=== PATIENT | female | born 1965 | race African-American/Black ===

== ENCOUNTER 2016-11-19 06:47 | Day surgery (SDC) | payer BC ==
--- NOTE | ~2016-11-19 | EGD ---
EGD REPORT [facility] [address] [place] [address] NAME: ALLIE TO : 65 STATUS : REG [facility]#: [id number] AGE: 51 ADM/REG DATE : 11/19/16 MR#: [id number] REPORT SERV DATE: 11/19/16 DICTATED BY: EDIE MERCADO DATE: 11/19/16 REPORT STATUS : Draft TRANSCRIBED BY: [facility] DATE: 11/19/16 Endoscopy Center Patient Name: Allie To Date of : 1965 Attending MD: EDIE MERCADO MD Procedure Date No Time: 11/19/2016 Procedure: Colonoscopy Indications: Colon cancer screening in patient at increased risk: Family history of colon polyps mother/sister; last exam 2011. Patient Profile: Informed consent was obtained from the patient by me prior to the procedure. Risks, benefits, and alternatives were discussed including the risk of bleeding, perforation, infection, reaction to medicine, missed lesion, and cardiopulmonary complications. Referring MD: IVANIA OSEI Medicines: Monitored Anesthesia Care Complications: No immediate complications. Procedure: Pre-Anesthesia Assessment: - ASA Grade Assessment: II - A patient with mild systemic disease. After I obtained informed consent, the scope was passed under direct vision. Throughout the procedure, the patient's blood pressure, pulse, and oxygen saturations were monitored continuously. The PCF H190L [id number] was introduced through the anus and advanced to the cecum, identified by appendiceal orifice and ileocecal valve. The colonoscope was slowly withdrawn with careful examination all mucosal surfaces including specific attention around flexures and tip deflection behind folds; retroflexion performed in rectum. The colonoscopy was performed without difficulty. The patient tolerated the procedure well. The quality of the bowel preparation was poor except AC and most of TC. Findings: A sessile polyp was found in the rectum. The polyp was 10 mm in size. The polyp was removed with a hot snare. Resection and retrieval were complete. Impression: - Preparation of the colon was poor. - One 10 mm polyp in the rectum. Resected and retrieved. Recommendation: - Patient has a contact number available for emergencies. The signs and symptoms of potential delayed EGD REPORT [address] [address] NAME: ALLIE TO : 65 STATUS : REG [facility] [place] PAT#: [id number] AGE: 51 ADM/REG DATE : 11/19/16 MR#: [id number] REPORT SERV DATE: 11/19/16 DICTATED BY: EDIE MERCADO DATE: 11/19/16 REPORT STATUS : Draft TRANSCRIBED BY: [employer] DATE: 11/19/16 complications were discussed with the patient. Return to normal activities tomorrow. Written discharge instructions were provided to the patient. - Regular diet. - Continue present medications. - Await pathology results. - Repeat colonoscopy for surveillance based on pathology results. - No aspirin, ibuprofen, naproxen, or other non-steroidal anti-inflammatory drugs for 2 weeks after polyp removal. Procedure Code(s): --- Professional --- 17321, Colonoscopy, flexible, proximal to splenic flexure; with removal of tumor(s), polyp(s), or other lesion(s) by snare technique Diagnosis Code(s): --- Professional --- K62.1, Rectal polyp Z12.11, Encounter for screening for malignant neoplasm of colon Z83.71, Family history of colonic polyps CPT copyright 2013 [employer]. All rights reserved. The codes documented in this report are preliminary and upon barrel tester and drainer review may be revised to meet current compliance requirements. EDIE MERCADO MD 11/19/2016 8:47 AM This report has been signed electronically. Number of Addenda: 0 Note Initiated On: 11/19/2016 8:27 AM Scope Withdrawal Time 0 hours 6 minutes 5 seconds [id number] [id number]
[~2016-11-19 06:47] MED LIST: GLUCPH PO; HORMONE TROCHE SL; NEXIUM20 M1 PO; PROAIR HFA INH
== END 2016-11-19 23:59 | disposition home or self-care (01) ==
LOC: DMU 06:47
PROVIDERS: Internal Medicine Gastroenterology
PROC: 0DBP8ZX Excision of Rectum, Via Natural or Artificial Opening Endoscopic, Diagnostic (ICD-10-PCS; principal; 2016-11-19 08:00)
DX: Z12.11 Encounter for screening for malignant neoplasm of colon (principal); K62.1 Rectal polyp; K21.9 Gastro-esophageal reflux disease without esophagitis; E11.9 Type 2 diabetes mellitus without complications; J45.909 Unspecified asthma, uncomplicated; D64.9 Anemia, unspecified; Z83.71 Family history of colonic polyps; Z88.2 Allergy status to sulfonamides; Z79.899 Other long term (current) drug therapy; Z90.89 Acquired absence of other organs; Z90.49 Acquired absence of other specified parts of digestive tract; Z98.51 Tubal ligation status; Z98.890 Other specified postprocedural states
CPT/HCPCS: 82962; 88305

== ENCOUNTER 2016-12-05 05:41 | Day surgery (SDC) | payer BC ==
--- NOTE | ~2016-12-05 | EGD ---
EGD REPORT [facility] [address] [place] [address] NAME: ALLIE TO : 65 STATUS : REG [facility] PAT#: [id number] AGE: 51 ADM/REG DATE : 12/05/16 MR#: [id number] REPORT SERV DATE: 12/05/16 DICTATED BY: EDIE MERCADO DATE: 12/05/16 REPORT STATUS : Draft TRANSCRIBED BY: [facility] DATE: 12/05/16 Endoscopy Center Patient Name: Allie To Date of : 1965 Attending MD: EDIE MERCADO MD Procedure Date No Time: 12/05/2016 Procedure: Colonoscopy Indications: Colon cancer screening in patient at increased risk: Family history of colon polyps mother/sister. 2 day prep. Patient Profile: Informed consent was obtained from the patient by me prior to the procedure. Risks, benefits, and alternatives were discussed including the risk of bleeding, perforation, infection, reaction to medicine, missed lesion, and cardiopulmonary complications. Referring MD: IVANIA OSEI Medicines: Monitored Anesthesia Care Complications: No immediate complications. Procedure: Pre-Anesthesia Assessment: - ASA Grade Assessment: III - A patient with severe systemic disease. After I obtained informed consent, the scope was passed under direct vision. Throughout the procedure, the patient's blood pressure, pulse, and oxygen saturations were monitored continuously. The PCF H190L [id number] was introduced through the anus and advanced to the cecum, identified by appendiceal orifice and ileocecal valve. The colonoscope was slowly withdrawn with careful examination all mucosal surfaces including specific attention around flexures and tip deflection behind folds; retroflexion performed in rectum. The colonoscopy was performed without difficulty. The patient tolerated the procedure well. The quality of the bowel preparation was adequate. The ileocecal valve, appendiceal orifice and rectum were photographed. Findings: The colon (entire examined portion) appeared normal. Impression: - The entire examined colon is normal. Recommendation: - Patient has a contact number available for emergencies. The signs and symptoms of potential delayed complications were discussed with the patient. Return to normal activities tomorrow. Written discharge instructions were provided to the patient. EGD REPORT [address] [address] NAME: ALLIE TO : 65 STATUS : REG [facility] PAT#: [id number] AGE: 51 ADM/REG DATE : 12/05/16 MR#: [id number] REPORT SERV DATE: 12/05/16 DICTATED BY: EDIE MERCADO DATE: 12/05/16 REPORT STATUS : Draft TRANSCRIBED BY: [employer] DATE: 12/05/16 - Regular diet. - Continue present medications. - Repeat colonoscopy in 5 years for screening purposes--2 day prep. Procedure Code(s): --- Professional --- 22593, Colonoscopy, flexible, proximal to splenic flexure; diagnostic, with or without collection of specimen(s) by brushing or washing, with or without colon decompression (separate procedure) Diagnosis Code(s): --- Professional --- Z12.11, Encounter for screening for malignant neoplasm of colon Z83.71, Family history of colonic polyps CPT copyright 2013 [employer]. All rights reserved. The codes documented in this report are preliminary and upon bottom precipitator operator review may be revised to meet current compliance requirements. EDIE MERCADO MD 12/05/2016 7:26 AM This report has been signed electronically. Number of Addenda: 0 Note Initiated On: 12/05/2016 6:59 AM Scope Withdrawal Time 0 hours 5 minutes 44 seconds [id number] [id number]
== END 2016-12-05 23:59 | disposition home or self-care (01) ==
LOC: DMU 05:41
PROVIDERS: Internal Medicine Gastroenterology
PROC: 0DJD8ZZ Inspection of Lower Intestinal Tract, Via Natural or Artificial Opening Endoscopic (ICD-10-PCS; principal; 2016-12-05 07:00)
DX: Z12.11 Encounter for screening for malignant neoplasm of colon (principal); K21.9 Gastro-esophageal reflux disease without esophagitis; J45.909 Unspecified asthma, uncomplicated; E11.9 Type 2 diabetes mellitus without complications; Z83.71 Family history of colonic polyps; Z88.2 Allergy status to sulfonamides; Z90.89 Acquired absence of other organs; Z98.51 Tubal ligation status
CPT/HCPCS: 82962